=== PATIENT | female | born 1940 | race Caucasian/White ===

== ENCOUNTER 2019-10-05 20:10 | Inpatient (IN) ==
--- NOTE | 2019-10-05 20:56 | XRay Report ---
INDICATION: shortness of breath, chest pain TECHNIQUE: AP portable semiupright chest x-ray COMPARISON: None FINDINGS: Lungs:Right lung is negative. There is left lung infiltrate with left basilar consolidation. There is left lung volume loss with retraction of the heart and mediastinum. Appearance is consistent with left lung pneumonia. Follow-up PA and lateral chest x-ray is recommended. Heart, vascular:No significant cardiomegaly. Pulmonary vascularity is normal. No pulmonary edema or pulmonary congestion Mediastinum, frank:No mediastinal widening. No hilar mass Pleura:Left pleural effusion is possible although not well demonstrated on this AP portable chest x-ray Skeletal:Negative. IMPRESSION: 1. Left lung infiltrates consistent with pneumonia. Left lower lobe volume loss 2. Follow-up PA and lateral chest x-ray recommended. Interpreted and Authenticated by: Gregory Sherwood 10/05/19
[2019-10-05] MEDS ORDERED: 0.9 % SODIUM CHLORIDE 1,000 ML IV ONE (21:00)
[2019-10-05 21:05] LABS: Basophils # (Auto) 0.03 K/mcL (0.00-0.30); Basophils % (Auto) 0.2 % (0.0-2.0); Eosinophils # (Auto) 0.02 K/mcL (0.00-0.70); Eosinophils % (Auto) 0.2 % (0.0-7.0); Granulocytes % (Auto) 75.9 % (38.0-78.0); Hematocrit 38.5 % (34.1-44.9); Hemoglobin 13.3 g/dL (11.2-15.7); Lymphocytes # (Auto) 1.47 K/mcL (1.50-4.80); Mean Cell Volume 81.2 fL (80.0-100.0); Mean Corpuscular HGB Conc 34.5 g/dL (31.0-36.0); Mean Platelet Volume 9.9 fL (7.4-10.4); Monocytes # (Auto) 1.43 K/mcL (0.10-0.90); Monocytes % (Auto) 11.7 % (1.0-12.0); Platelet Count 307 K/mcL (140-440); RBC 4.74 M/mcL (3.59-5.38); Red Cell Distribution Width 12.9 % (11.5-14.5); WBC 12.3 K/mcL (4.50-11.00)
[2019-10-05 21:32] LABS: ALT/SGPT 9 U/l (0-40); AST/SGOT 19 U/l (0-37); Albumin 4.3 gm/dL (3.2-5.2); Albumin/Globulin Ratio 1.5 (1.0-2.3); Alkaline Phosphatase 86 U/L (39-117); Bilirubin,Total 1.4 mg/dL (0.0-1.0); Blood Urea Nitrogen 8 mg/dl (8-23); Calcium 9.6 mg/dl (8.6-10.4); Carbon Dioxide 26 mmol/L (22-30); Globulin 2.9 gm/dL (2.2-3.7); Glomerular Filtration Rate 87; Glucose 126 mg/dL (70-105)
[2019-10-05 21:33] LABS: Chloride 82 mmol/L (96-108)
--- NOTE | 2019-10-05 22:38 | Internal Med History&Physical ---
HPI History of Present Illness Patient information: Note initiated : 10/05/19 at 10:38 pm Service Date, if different from initiated Date: [] Patient: Trinity Baron a 79 y/o F admitted on for shortness of breath. Chief Complaint: [] History of present illness: Ms. Baron is a 79 year old F with a history of hypertension/COPD who lives alone and is fairly independent at baseline. She presents to the ER along with her daughter Cinthya after she has been feeling weak all day. This morning she slid on the floor and remained down for 4 hours until she could muster enough strength to get up back to bed and called her daughter. She denies losing consciousness or seizure-like episode or incontinence. She denies associated fever, shaking chills, joint pain, headache, photophobia. She denies sick contacts. She does complain of lower back pain but denies hitting her head or any body part. Initial work-up in the ER was consistent with left lower lobe pneumonia. Hospital service was consulted after patient was started on antibiotics. Add itionally white count 12.3 and sodium 122. At the time evaluation patient is accompanied with her daughter. She was able to answer most of the questions. She denies active distress. She has associ ated loss of appetite and has not eaten anything all day. She denies diarrhea, dysuria, changes in medications or missing her usual dose of medications. 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) Heart murmur (Chronic) No echocardiogram done Hypertension, essential (Chronic) Osteopenia (Chronic) Surgical History History of left cataract surgery (Inactive) Social History smoking status: Current every day smoker MEDS/ALLERGIES Home Medications and Allergies Home Medications Medication Instructions Recorded Confirmed Type losartan 50 mg PO QDAY 10/05/19 10/05/19 History mometasone-formoterol [Dulera] 1 puff INHALATION QDAY 10/05/19 10/05/19 History propranolol 40 mg PO QDAY 10/05/19 10/05/19 History Allergies Allergy/AdvReac Type Severity Reaction Status Date / Time lidocaine [From Xylocaine] AdvReac Mild SHAKES Verified 10/06/19 07:10 EXAM Constitutional Vitals: Temp Pulse Resp BP Pulse Ox 98.3 F 79 20 125/52 95 10/05/19 20:10 10/05/19 22:01 10/05/19 22:01 10/05/19 22:01 10/05/19 22:01 Alert and oriented Head normocephalic Oral cavity dry No ear nose discharge Neck lymphadenopathy S1-S2 regular rhythm Nonlabored breathing Diminished breath sounds bases Abdomen soft nontender nondistended Lower extremity no sinus clubbing no joint swelling Skin no suspicious lesion Psych alert cooperative Neuro nonfocal DATA Data Completed and Pending Labs on day of discharge: Labs from last 24 hours 10/05/19 10/05/19 10/05/19 20:20 20:20 20:20 WBC RBC Hgb Hct MCV MCH MCHC RDW Plt Count MPV Gran % Lymph % (Auto) [place] % (Auto) Eos % (Auto) Baso % (Auto) Gran # Lymph # (Auto) [place] # (Auto) Eos # (Auto) Baso # (Auto) Sodium 122 L Potassium 3.5 Chloride 82 L Carbon Dioxide 26 Anion Gap 14.0 BUN 8 Creatinine 0.6 GFR Calculation 87 Glucose 126 H Calcium 9.6 Total Bilirubin 1.4 H AST 19 ALT 9 Alkaline Phosphatase 86 Total Creatine Kinase 175 H Troponin T < 0.01 Total Protein 7.2 Albumin 4.3 Globulin 2.9 Albumin/Globulin Ratio 1.5 10/05/19 20:20 WBC 12.3 H RBC 4.74 Hgb 13.3 Hct 38.5 MCV 81.2 MCH 28.1 MCHC 34.5 RDW 12.9 Plt Count 307 MPV 9.9 Gran % 75.9 Lymph % (Auto) 12.0 L [place] % (Auto) 11.7 Eos % (Auto) 0.2 Baso % (Auto) 0.2 Gran # 9.30 H Lymph # (Auto) 1.47 L [place] # (Auto) 1.43 H Eos # (Auto) 0.02 Baso # (Auto) 0.03 Sodium Potassium Chloride Carbon Dioxide Anion Gap BUN Creatinine GFR Calculation Glucose Calcium Total Bilirubin AST ALT Alkaline Phosphatase Total Creatine Kinase Troponin T Total Protein Albumin Globulin Albumin/Globulin Ratio A/P Time Spent With Patient Time: * Left lower lobe pneumonia initiate empiric antibiotic coverage. Supplemental oxygen/bronchodilators * Hyponatremia check urine serum osmolarity to rule out SIADH. Chest imaging to rule out malignant process. Free water restriction. * History of hypertension continue home medication including propranolol/losartan * History of COPD continue Dulera * Tobacco dependence-nicotine patch * Prophylax Heparin Plan * Inpatient admission, anticipate minimum of 2 midnight hospitalization * Serial sodium * Urine and serum osmolarity * Antibiotic coverage * Prior medical condition management as above * PT OT nutrition support Time spent in excess of 70 minutes
[2019-10-05] MEDS ORDERED: HYDROmorphone 0.5 MG/0.5 ML SYRINGE IV PRN (22:44)
[2019-10-05] MEDS ORDERED: NALOXONE HCL 0.4 MG/ML VIAL IV PRN (22:44)
[2019-10-05] MEDS ORDERED: ONDANSETRON 4 MG/2 ML VIAL IV PRN (22:44)
[2019-10-05] MEDS ORDERED: cefTRIAXone 1 GM VIAL IV ONE (22:49)
[2019-10-05] MEDS ORDERED: AZITHROMYCIN 500 MG in DEXTROSE 5% IN WATER 250 ML IV ONE (22:50)
--- NOTE | 2019-10-05 23:02 | Emergency Department Note ---
HPI General Chief complaint: Shortness of Breath/Dyspnea Stated complaint: shortness of breath Time Seen by Provider: 10/05/19 20:44 Source: patient Mode of arrival: ambulatory Limitations: no limitations History of Present Illness HPI Narrative: Narrative: Experiencing increasing shortness of breath worsening with exertion or laying flat and begin early a.m. around 4 to have left-sided chest pain radiating through to her shoulder blades and felt quite restless. She is been reducing her cigarette smoking down from 3/day down to 2/day down per 1/day and none yesterday. She usually thinks that some chest pains are related to reflux or heartburn or gas in her stomach. She has not eaten or drank very well today. She was unstable on her feet and weak and fell to the floor without injury but laid there for about 4 hours because she was weak. She was eventually able to get to the bedroom and to bed and then a bathroom a few times and called her daughter to help get her here. Her pain now is in the mid back and is rated as rather severe but similar to some that she has had in the past. She does have h er gallbladder. She has been using an [id number] acid emily or indigestion medication because the prescription similar was too expensive. Related Data Home Medications Medication Instructions Recorded Confirmed losartan 50 mg PO QDAY 10/05/19 10/05/19 mometasone-formoterol [Dulera] 1 puff INHALATION QDAY 10/05/19 10/05/19 propranolol 40 mg PO QDAY 10/05/19 10/05/19 Allergies Allergy/AdvReac Type Severity Reaction Status Date / Time From XYLOCAINE Allergy Unknown SHAKES Uncoded 09/02/14 19:54 Review of Systems ROS ROS Narrative: Narrative: Denies fevers, chills, sweats No sore throat. Has some chronic runny nose No palpitations Has her usual cough with some usual small amount of phlegm. She takes Dulera daily and no other inhaler. Has occasional wheeze. No abdominal pain nausea vomiting or diarrhea No dysuria Back pain as above. PFSH Narrative Patient History Narrative: Narrative: Denies diabetes, hypothyroidism, renal disease, chronic anticoagulation, myocardial infarction, CVA, TIA, osteoporosis but does have osteopenia. 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) Heart murmur (Chronic) No echocardiogram done Hypertension, essential (Chronic) Osteopenia (Chronic) Surgical History (Updated 10/05/19 @ 22:58 by Kem Grove DO) History of left cataract surgery (Inactive) Social History Smoking Status: Current every day smoker Exam Narrative Narrative: Narrative: General Limitations: no limitations General appearance: alert, in no apparent distress and nontoxic Head Head: atraumatic and normocephalic Eye Eye: Present normal appearance, PERRL and EOMI ENT ENT: Present normal oropharynx and mucous membranes moist Neck Neck: Present trachea midline; Absent lymphadenopathy and thyromegaly Chest Chest: Present symmetric chest wall rise Respiratory Respiratory: Present decreased breath sounds and other (Occasional splinting with taking a deeper breath.); Absent respiratory distress, rales/crackles, wheezes, stridor, accessory muscle use and prolonged expiratory phase Cardiovascular Cardiovascular: Present regular rate, normal rhythm and systolic murmur (Small crickety sound of her S1 in the Left mid sternal border and slight or squeak sound in the aortic post.); Absent diastolic murmur Adbominal Abdominal: Present soft; Absent distention, tenderness, guarding, rebound, rigidity, organomegaly and mass Extremities Extremities: Present normal capillary refill; Absent pedal edema, pretibial edema, calf tenderness and cyanosis Back Back: Absent CVA tenderness (R), CVA tenderness (L) and spinous process tendern ess (Subjectively describes some tenderness at the level of about T9.) Neurological Neurological: Present alert and oriented X3 Psychiatric Psychiatric: Present normal affect, polite and pleasant; Absent depressed, agitated, anxious and poor eye contact Skin Skin: Present warm and dry; Absent cyanosis and pallor Course Vital Signs Vital signs: Vital Signs Temperature 98.3 F 10/05/19 20:10 Pulse Rate 87 10/05/19 20:10 Respiratory Rate 18 10/05/19 20:10 Blood Pressure 174/80 10/05/19 20:10 Pulse Oximetry (%) 96 10/05/19 20:10 Temperature 98.3 F 10/05/19 20:10 Pulse Rate 75 10/05/19 22:31 Respiratory Rate 19 10/05/19 22:31 Blood Pressure 110/48 10/05/19 22:31 Pulse Oximetry (%) 97 10/05/19 22:31 MDM MDM Narrative Medical decision making narrative: Narrative: Shortness of breath, weakness, collapse. Will do labs and chest x-ray and EKG. Will add CPK because of her being on the floor for multiple hours (4). Labs were quite unremarkable except for white count of 12.3 and sodium of 122 and chloride of 82. Bili is 1.4. Troponin less than 0.01. BUN 8 and creatinine 0.6. 10:34 PM - x-ray demonstrates left lower lobe pneumonia. I will discuss with hospitalist. 11:40 PM - I spoke with Dr. Richards, hospitalist who agrees with admit. He has for a CT scan of the chest tomorrow with contrast, urine osmolality, Rocephin and Zithromax and IV fluids, normal saline at 50 mL's per hour. Lab Data Result diagrams: 10/05/19 20:20 10/05/19 20:20 Labs: Lab Results 10/05/19 10/05/19 10/05/19 Range/Units 20:20 20:20 20:20 WBC 12.3 H (4.50-11.00) K/mcL RBC 4.74 (3.59-5.38) M/mcL Hgb 13.3 (11.2-15.7) g/dL Hct 38.5 (34.1-44.9) % MCV 81.2 (80.0-100.0) fL MCH 28.1 (26.0-34.0) pg MCHC 34.5 (31.0-36.0) g/dL RDW 12.9 (11.5-14.5) % Plt Count 307 (140-440) K/mcL MPV 9.9 (7.4-10.4) fL Gran % 75.9 (38.0-78.0) % Lymph % (Auto) 12.0 L (15.5-49.0) % [place] % (Auto) 11.7 (1.0-12.0) % Eos % (Auto) 0.2 (0.0-7.0) % Baso % (Auto) 0.2 (0.0-2.0) % Gran # 9.30 H (1.80-8.00) K/mcL Lymph # (Auto) 1.47 L (1.50-4.80) K/mcL [place] # (Auto) 1.43 H (0.10-0.90) K/mcL Eos # (Auto) 0.02 (0.00-0.70) K/mcL Baso # (Auto) 0.03 (0.00-0.30) K/mcL Sodium 122 L (133-145) mmol/L Potassium 3.5 (3.3-5.1) mmol/L Chloride 82 L (96-108) mmol/L Carbon Dioxide 26 (22-30) mmol/L Anion Gap 14.0 (8-16) BUN 8 (8-23) mg/dl Creatinine 0.6 (0.6-1.1) mg/dl GFR Calculation 87 Glucose 126 H (70-105) mg/dL Calcium 9.6 (8.6-10.4) mg/dl Total Bilirubin 1.4 H (0.0-1.0) mg/dL AST 19 (0-37) U/l ALT 9 (0-40) U/l Alkaline Phosphatase 86 (39-117) U/L Total Creatine Kinase (24-170) IU/L Troponin T < 0.01 (0-0.03) ng/ml Total Protein 7.2 (5.9-8.4) gm/dL Albumin 4.3 (3.2-5.2) gm/dL Globulin 2.9 (2.2-3.7) gm/dL Albumin/Globulin Ratio 1.5 (1.0-2.3) 10/05/19 Range/Units 20:20 WBC (4.50-11.00) K/mcL RBC (3.59-5.38) M/mcL Hgb (11.2-15.7) g/dL Hct (34.1-44.9) % MCV (80.0-100.0) fL MCH (26.0-34.0) pg MCHC (31.0-36.0) g/dL RDW (11.5-14.5) % Plt Count (140-440) K/mcL MPV (7.4-10.4) fL Gran % (38.0-78.0) % Lymph % (Auto) (15.5-49.0) % [place] % (Auto) (1.0-12.0) % Eos % (Auto) (0.0-7.0) % Baso % (Auto) (0.0-2.0) % Gran # (1.80-8.00) K/mcL Lymph # (Auto) (1.50-4.80) K/mcL [place] # (Auto) (0.10-0.90) K/mcL Eos # (Auto) (0.00-0.70) K/mcL Baso # (Auto) (0.00-0.30) K/mcL Sodium (133-145) mmol/L Potassium (3.3-5.1) mmol/L Chloride (96-108) mmol/L Carbon Dioxide (22-30) mmol/L Anion Gap (8-16) BUN (8-23) mg/dl Creatinine (0.6-1.1) mg/dl GFR Calculation Glucose (70-105) mg/dL Calcium (8.6-10.4) mg/dl Total Bilirubin (0.0-1.0) mg/dL AST (0-37) U/l ALT (0-40) U/l Alkaline Phosphatase (39-117) U/L Total Creatine Kinase 175 H (24-170) IU/L Troponin T (0-0.03) ng/ml Total Protein (5.9-8.4) gm/dL Albumin (3.2-5.2) gm/dL Globulin (2.2-3.7) gm/dL Albumin/Globulin Ratio (1.0-2.3) Discharge Plan Patient/Caregiver Discharge Instructions Pt seen by APPOINTMENT MANAGER/PA only: No Clinical Impression: Acute hyponatremia, Abnormal ECG Community acquired pneumonia Qualifiers: Laterality: left Lung location: lower lobe of lung Qualified Code(s): J18.9 - Pneumonia, unspecified organism Patient Disposition: Xfer As Inpt ([facility]) Follow up with: Kevin,Rogelio, BARREL FILLER [Primary Care Provider] - Prescriptions: No Action losartan 50 mg Tablet 50 mg PO QDAY RF: 0 propranolol 40 mg Tablet 40 mg PO QDAY RF: 0 Dulera 100-5 mcg/actuation HFA aerosol inhaler 1 puff INHALATION QDAY RF: 0
[2019-10-06] MEDS: 0.9 % SODIUM CHLORIDE 1,000 ML IV SCH ×2 (00:05→20:36)
--- NOTE | 2019-10-06 05:44 | XRay Report ---
INDICATION: pain about T9, splinting TECHNIQUE: AP, lateral, swimmer's views of the thoracic spine COMPARISON: AP chest x-ray dated 10/05/2019 FINDINGS: Examination is limited with somewhat suboptimal evaluation of the thoracic spine. 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 There is slight wedging of the T10 vertebral body. There is mild L1 superior endplate compression. This may be chronic. Other thoracic vertebral body heights are within normal limits. Pedicles appear intact. No detectable destructive lesions. Chest x-ray demonstrate density in left retrocardiac region consistent with left lower lobe consolidation. This is not well-visualized on present study. It is density projected over the lower thoracic spine but I believe this is secondary to elevated left hemidiaphragm. Further evaluation of the thoracic spine with MRI scan or CT scan may be of benefit. Follow-up PA and lateral chest x-ray may also be of benefit. IMPRESSION: 1. No definite acute compression fracture. 2. Mildly elevated left hemidiaphragm. 3. CT scan or MRI scan may be helpful for further evaluation of the thoracic spine. Follow-up PA and lateral chest x-ray recommended to better evaluate the lungs Interpreted and Authenticated by: Gregory Sherwood 10/06/19
[2019-10-06] MEDS ORDERED: IOPAMIDOL 100 ML BOTTLE IV ONE (07:22)
--- NOTE | 2019-10-06 07:47 | Cat Scan Report ---
INDICATION: LLL pneumonia, retraction/suction; thoracic pain COMPARISON: AP chest x-ray dated 10/05/2019. Thoracic spine dated 10/05/2019 TECHNIQUE: Axial contrast enhanced images through the chest. Sagittally and coronally reformatted images. MIP reformatted images. 75ml Isovue 370 injected intravenously. FINDINGS: There is a large mass in the inferior mediastinum and left hilum. This mass causes effacement of the left pulmonary artery and proximal left upper lobe and lower lobe pulmonary arteries. There is also marked effacement and probable occlusion of the left lower lobe bronchus. Appearance is consistent with malignancy. Small cell lung cancer should be considered. This mass is contiguous with the left atrium and superior left pulmonary vein. Superior left pulmonary vein is effaced. Lungs:Right lung is negative. No focal pulmonary parenchymal infiltrate or mass. There is probable mild central lobular emphysema. There is left lower lobe collapse. This is secondary to effacement of the left lower lobe bronchus from the large mediastinal and left hilar mass. Left upper lobe is negative. No focal mass. Mediastinum, vascular:As described above there is a large inferior mediastinal and left hilar mass. This is difficult to accurately measure. This measures approximately 7 cm in mediolateral dimension, 5 cm in AP dimension, and 13 cm in craniocaudal dimension. This mass is consistent with malignancy and small cell cancer should be suspected. Heart:No cardiomegaly. No pericardial effusion. No significant coronary artery calcification Pleura:There is a small left pleural effusion. No right pleural effusion Axilla, supraclavicular regions, chest wall:No pathologic axillary or supraclavicular adenopathy. 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 Multilevel degenerative disc disease in the thoracic spine. No lytic lesions. There is mild sclerosis within the T9 vertebral body. This is nonspecific. Sternum is negative. No rib lesions. Upper Abdomen:Negative IMPRESSION: 1. Large inferior mediastinal and left hilar mass. Appearance is consistent with neoplasm and small cell lung cancer is most likely 2. Effacement of the left pulmonary artery and occlusion of the left lower lobe bronchus. Significant left lower lobe volume loss 3. Small left pleural effusion 4. Mild centrilobular emphysema The exam was performed using radiation dose optimization techniques including, but not limited to, automated exposure control, adjustment of the mA and/or kV according to patient size and use of iterative reconstruction technique. Interpreted and Authenticated by: Gregory Sherwood 10/06/19
[2019-10-06] MEDS ORDERED: MOMETASONE FORMOTEROL INHALATION SCH (09:00)
[2019-10-06] MEDS ORDERED: ONDANSETRON 4 MG/2 ML VIAL IV PRN (09:01)
[2019-10-06] MEDS ORDERED: ACETAMINOPHEN 325 MG TABLET PO PRN (09:01)
[2019-10-06] MEDS ORDERED: MELATONIN 3 MG TABLET PO PRN (09:01)
[2019-10-06] MEDS ORDERED: BISACODYL 10 MG SUPP.RECT PR PRN (09:01)
[2019-10-06] MEDS ORDERED: ONDANSETRON 4 MG ODT TABLET SL PRN (09:01)
[2019-10-06] MEDS ORDERED: POLYETHYLENE GLYCOL 3350 17 GM PACKET PO PRN (09:01)
[2019-10-06 09:49] LABS: Hematocrit 36.9 % (34.1-44.9); Hemoglobin 12.5 g/dL (11.2-15.7); Mean Cell Volume 83.1 fL (80.0-100.0); Mean Corpuscular HGB Conc 33.9 g/dL (31.0-36.0); Platelet Count 277 K/mcL (140-440); RBC 4.44 M/mcL (3.59-5.38); Red Cell Distribution Width 13.1 % (11.5-14.5); WBC 7.9 K/mcL (4.50-11.00)
[2019-10-06 10:10] LABS: ALT/SGPT 10 U/l (0-40); AST/SGOT 19 U/l (0-37); Albumin 3.8 gm/dL (3.2-5.2); Albumin/Globulin Ratio 1.4 (1.0-2.3); Alkaline Phosphatase 75 U/L (39-117); Bilirubin,Direct 0.3 mg/dL (0.0-0.3); Calcium 8.7 mg/dl (8.6-10.4); Carbon Dioxide 26 mmol/L (22-30); Globulin 2.7 gm/dL (2.2-3.7); Glomerular Filtration Rate 87; Glucose 138 mg/dL (70-105); Lactate Dehydrogenase 211 U/L (94-250); Phosphorous 3.7 mg/dL (2.7-4.5); Triglycerides 67 mg/dl (<150); Uric Acid 2.5 mg/dL (2.5-8.0)
[2019-10-06 10:11] LABS: Blood Urea Nitrogen 6 mg/dl (8-23); Chloride 86 mmol/L (96-108)
[2019-10-06] MEDS: LOSARTAN 50 MG TABLET PO SCH (10:13)
[2019-10-06] MEDS: PROPRANOLOL 40 MG TABLET PO SCH (10:14)
[2019-10-06] MEDS: SODIUM CHLORIDE 1 GM TABLET PO SCH ×3 (10:14→20:36)
[2019-10-06 10:21] LABS: Lymphocytes % 11 % (15-49); Monocytes % (Manual) 10 % (1-12); Platelet Estimate NORMAL (NORMAL); RBC Morphology NORMAL (NORMAL); Segmented Neutrophils % 79 % (38-78)
--- NOTE | 2019-10-06 13:53 | Internal Med Progress Note ---
SUBJECTIVE Subjective Patient information: Note initiated : 10/06/19 at 1:47 pm Service Date, if different from initiated Date: [] Patient: Trinity Baron a 79 y/o F admitted on 10/05/19 for shortness of breath. Chief Complaint: [] Interval history: History of present illness: Ms. Baron is a 79 year old F with a history of hypertension/COPD who lives alone and is fairly independent at baseline. She presents to the ER along with her daughter Cinthya after she has been feeling weak all day. This morning she slid on the floor and remained down for 4 hours until she could muster enough strength to get up back to bed and called her daughter. She denies losing consciousness or seizure-like episode or incontinence. She denies associated fever, shaking chills, joint pain, headache, photophobia. She denies sick contacts. She does complain of lower back pain but denies hitting her head or any body part. Initial work-up in the ER was consistent with left lower lobe pneumonia. Hospital service was consulted after patient was started on antibiotics. Additionally white count 12.3 and sodium 122. At the time evaluation patient is accompanied with her daughter. She was able to answer most of the questions. She denies active distress. She has associated loss of appetite and has not eaten anything all day. She denies diarrhea, dysuria, changes in medications or missing her usual dose of medications. 10/05-patient doing a lot better. No overnight events. No concerns per staff. Sodium improved 125. Urine osmolarity over 500 suggestive of SIADH. Continue free water restriction/sodium tablets. On antibiotic coverage for pneumonia. Continue PT OT/dietary interventions. Anticipate discharge once sodium over 130. Constitutional Vitals: Vital Signs Temp Pulse Resp BP Pulse Ox 98 F 74 18 155/81 95 10/06/19 08:00 10/06/19 12:00 10/06/19 12:00 10/06/19 12:00 10/06/19 12:00 Period Temp Pulse Resp BP Sys/[place] Pulse Ox Last 24 Hr 98 F-98.7 F 74-87 14-27 110-174/48-81 95-97 Intake and Output 10/05/19 10/06/19 10/06/19 21:59 05:59 13:59 Intake Total 1300 360 Output Total 460 150 Balance 840 210 Weight 73.482 kg 74.843 kg 74.843 kg Patient Weight 10/07/19 05:59 Weight 74.843 kg Alert oriented Nonlabored breathing No anxiety Nondistended abdomen Intake & Output: Intake & Output 10/05/19 10/06/19 10/06/19 21:59 05:59 13:59 Intake Total 1300 360 Output Total 460 150 Balance 840 210 Weight 73.482 kg 74.843 kg 74.843 kg Intake: IV 1250 Sodium Chloride 0.9% 1,000 ml @ 1000 Wide Open IV BOLUS ONE Rx#: [id number] Zithromax 500 mg In Dextrose 5% 250 in Water 250 ml @ 250 mls/hr IV ONCE ONE Rx#:[id number] Oral 50 360 Output: Void Amount 460 150 Other: Meal Breakfast Percent of Meal Consumed 100% Feeding Ability Assist with Tray Set Up Urine Appearance Clear Clear Urine Color Bright Yellow Dark Yellow Urine Odor Strong Strong # Emeses 1 OBJ DATA Labs CBC & Chem 7: 10/06/19 09:08 10/06/19 12:06 Labs: Abnormal Lab Results 10/06/19 10/06/19 10/06/19 12:06 09:08 09:08 WBC Lymph % (Auto) Gran # Lymph # (Auto) Wright # (Auto) Seg Neutrophils % 79 H Lymphocytes % 11 L Sodium 125 L 126 L Chloride 86 L BUN 6 L Glucose 138 H Osmolality Total Bilirubin Total Creatine Kinase 10/05/19 10/05/19 10/05/19 20:20 20:20 20:20 WBC Lymph % (Auto) Gran # Lymph # (Auto) Wright # (Auto) Seg Neutrophils % Lymphocytes % Sodium 122 L Chloride 82 L BUN Glucose 126 H Osmolality 254 L Total Bilirubin 1.4 H Total Creatine Kinase 175 H 10/05/19 20:20 WBC 12.3 H Lymph % (Auto) 12.0 L Gran # 9.30 H Lymph # (Auto) 1.47 L Wright # (Auto) 1.43 H Seg Neutrophils % Lymphocytes % Sodium Chloride BUN Glucose Osmolality Total Bilirubin Total Creatine Kinase Meds: Medications Acetaminophen (Tylenol) 650 mg PO Q4-6HP PRN; Protocol PRN Reason: Per Pain Protocol/Fever > 101 Bisacodyl (Dulcolax) 10 mg HI Q2-3DAYS PRN PRN Reason: Constipation Docusate Sodium (Colace) 100 mg PO BID [facility] Heparin Sodium (Porcine) (Heparin) 5,000 unit SQ Q12 [facility] Hydromorphone HCl (Dilaudid) 0.5 mg IV Q2HP PRN; Protocol PRN Reason: back or chest pain Sodium Chloride (Sodium Chloride 0.9%) 1,000 mls @ 50 mls/hr IV .Q20H [facility] Last Admin: 10/06/19 00:05 Dose: 50 mls/hr Documented by: Iron Carb/Multivit/Sebastian/Folic Acid (Multivitamin W/Minerals) 1 tab PO DAILY [facility] Losartan Potassium (Cozaar) 50 mg PO QDAY [facility] Last Admin: 10/06/19 10:13 Dose: 50 mg Documented by: Melatonin (Melatonin 3mg Tablet) 3 mg PO HSP PRN PRN Reason: Insomnia Naloxone HCl (Narcan) 0.1 mg IV Q2MIN PRN PRN Reason: Opiate Reversal Non-Formulary Medication (Mometasone-Formoterol [Dulera]) 1 puff INHALATION QDAY [facility] Last Admin: 10/06/19 11:26 Dose: Not Given Documented by: Ondansetron HCl (Zofran) 4 mg IV Q4HP PRN PRN Reason: Nausea And Vomiting Ondansetron HCl (Zofran Odt) 4 mg SL Q4-6HP PRN; Protocol PRN Reason: Nausea And Vomiting Ondansetron HCl (Zofran) 4 mg IV Q4-6HP PRN; Protocol PRN Reason: Nausea And Vomiting Polyethylene Glycol (Miralax) 17 gm PO DAILYP PRN PRN Reason: Constipation Propranolol HCl (Inderal) 40 mg PO QDAY [facility] Last Admin: 10/06/19 10:14 Dose: 40 mg Documented by: Senna/Docusate Sodium (Senna Plus Tablet) 1 tab PO HS [facility] Sodium Chloride (Sodium Chloride) 2 gm PO TID [facility] Last Admin: 10/06/19 10:14 Dose: 2 gm Documented by: A/P Time Spent With Patient Time: * Left lower lobe pneumonia initiate empiric antibiotic coverage. Supplemental oxygen/bronchodilators * Hyponatremia check urine serum osmolarity to rule out SIADH. Chest imaging to rule out malignant process. Free water restriction. * History of hypertension continue home medication including propranolol/losartan * History of COPD stable on Dulera * Tobacco dependence-offered nicotine patch * Prophylax Heparin Plan * Serial sodium * Fever restriction/sodium tablet * continue antibiotic coverage * Continue pre-existing medical condition management as above * PT OT nutrition support * Discharge planning QUALITY VTE Deep Vein Thrombosis/Pulmonary Embolism Present on Admission: No
[2019-10-06] MEDS: cefTRIAXone 2 GM in DEXTROSE 5% IN WATER 50 ML IV SCH (14:46)
[2019-10-06] MEDS: DOCUSATE SODIUM 100 MG CAPSULE PO SCH (20:36)
[2019-10-06] MEDS: HEPARIN 5,000 UNIT/ML VIAL SQ SCH (20:36)
[2019-10-06] MEDS ORDERED: SENNOSIDES/DOCUSATE SODIUM 1 TAB TABLET PO SCH (21:00)
[2019-10-07 05:24] LABS: Hematocrit 33.1 % (34.1-44.9); Hemoglobin 11.1 g/dL (11.2-15.7); Mean Cell Volume 85.3 fL (80.0-100.0); Mean Corpuscular HGB Conc 33.5 g/dL (31.0-36.0); Mean Platelet Volume 10.2 fL (7.4-10.4); Platelet Count 249 K/mcL (140-440); RBC 3.88 M/mcL (3.59-5.38); Red Cell Distribution Width 13.2 % (11.5-14.5); WBC 5.5 K/mcL (4.50-11.00)
[2019-10-07 05:33] LABS: ALT/SGPT 19 U/l (0-40); AST/SGOT 21 U/l (0-37); Albumin/Globulin Ratio 1.3 (1.0-2.3); Alkaline Phosphatase 65 U/L (39-117); Bilirubin,Total 0.4 mg/dL (0.0-1.0); Blood Urea Nitrogen 7 mg/dl (8-23); Calcium 8.2 mg/dl (8.6-10.4); Carbon Dioxide 22 mmol/L (22-30); Globulin 2.3 gm/dL (2.2-3.7); Glomerular Filtration Rate 93; Glucose 94 mg/dL (70-105); Lactate Dehydrogenase 193 U/L (94-250); Phosphorous 3.1 mg/dL (2.7-4.5); Triglycerides 70 mg/dl (<150); Uric Acid 2.2 mg/dL (2.5-8.0)
[2019-10-07 05:35] LABS: Bilirubin,Direct < 0.2 mg/dL (0.0-0.3); Chloride 94 mmol/L (96-108)
[2019-10-07] MEDS: SODIUM CHLORIDE 1 GM TABLET PO SCH (07:48)
[2019-10-07] MEDS: DOCUSATE SODIUM 100 MG CAPSULE PO SCH (07:48)
[2019-10-07] MEDS: LOSARTAN 50 MG TABLET PO SCH (07:48)
[2019-10-07] MEDS: PROPRANOLOL 40 MG TABLET PO SCH (07:48)
[2019-10-07] MEDS: HEPARIN 5,000 UNIT/ML VIAL SQ SCH (07:49)
[2019-10-07 08:21] LABS: Basophils % (Manual) 1 % (0-2); Eosinophils % (Manual) 2 % (0-7); Lymphocytes % 31 % (15-49); Monocytes % (Manual) 11 % (1-12); Platelet Estimate NORMAL (NORMAL); RBC Morphology NORMAL (NORMAL); Segmented Neutrophils % 55 % (38-78)
[2019-10-07] MEDS ORDERED: MOMETASONE FORMOTEROL INH SCH (09:00)
[2019-10-07] MEDS ORDERED: MULTIVIT,THER IRON,CA,FA & MIN 1 TABLET PO SCH (09:00)
[2019-10-07] MEDS ORDERED: AZITHROMYCIN 250 MG TABLET PO SCH (09:00)
[2019-10-07] MEDS: cefTRIAXone 2 GM in DEXTROSE 5% IN WATER 50 ML IV SCH (10:20)
--- NOTE | 2019-10-07 11:22 | Discharge Summary ---
Discharge Provider Provider Patient information: Note initiated : 10/07/19 at 11:16 am Service Date, if different from initiated Date: [] Patient: Trinity Baron a 79 y/o F admitted on 10/05/19 for shortness of breath. Chief Complaint: [] Date of admission: 10/05/19 23:32 Discharge date: 10/07/19 Primary care physician: EVE Garcia Consults: 10/05/19 Consult to Physician [CONS] Stat Comment: Consulting Provider: Sloan Perla Reason For Exam: Physician to Consult Discharge Meds Discharge Medications Active and Home Medications: Home Medications losartan 50 mg PO QDAY 10/05/19 [History Confirmed 10/05/19 Last Taken Unknown] mometasone-formoterol [Dulera] 1 puff INHALATION QDAY 10/05/19 [History Confirmed 10/05/19 Last Taken Unknown] propranolol 40 mg PO QDAY 10/05/19 [History Confirmed 10/05/19 Last Taken Unknown] Acid Concession Stand Attendant (omeprazole) 20 mg PO DAILY 10/06/19 [History Confirmed 10/06/19 Last Taken Unknown] COURSE Hospital Course Discharge diagnosis: Hilar lung mass, SIADH Time Spent with Patient Time attestation: Discharge diagnosis * 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 Baron is a 79 year old F with a history of hypertension/COPD who lives alone and is fairly independent at baseline. She presents to the ER along with her daughter Cinthya after she has been feeling weak all day. This morning she slid on the floor and remained down for 4 hours until she could muster enough strength to get up back to bed and called her daughter. She denies losing consciousness or seizure-like episode or incontinence. She denies associated fever, shaking chills, joint pain, headache, photophobia. She denies sick contacts. She does complain of lower back pain but denies hitting her head or any body part. Initial work-up in the ER was consistent with left lower lobe pneumonia. Hospital service was consulted after patient was started on antibiotics. Additionally white count 12.3 and sodium 122. At the time evaluation patient is accompanied with her daughter. She was able to answer most of the questions. She denies active distress. She has associated loss of appetite and has not eaten anything all day. She denies diarrhea, dysuria, changes in medications or missing her usual dose of medications. 10/05-patient doing a lot better. No overnight events. No concerns per staff. Sodium improved 125. Urine osmolarity over 500 suggestive of SIADH. Continue free water restriction/sodium tablets. On antibiotic coverage for pneumonia. Continue PT OT/dietary interventions. Anticipate discharge once sodium over 130. 10/06-CT surgery of hilar mass. Discussed with patient. Also discussed option including biopsy and pulmonology follow-up as outpatient. Patient contemplating on further approach including palliation. At this time patient is being discharged on additional 5 days of antibiotics for pneumonia. However we will set up an appointment pulmonology for evaluation of bronchoscopy biopsy. Sodium improved to 128. EXAM Constitutional Vitals: Temp Pulse Resp BP Pulse Ox 97.7 F 69 18 150/80 97 10/07/19 08:00 10/07/19 08:00 10/07/19 08:00 10/07/19 08:00 10/07/19 08:00 Discharge Data Data Completed and Pending Labs on day of discharge: Labs from last 24 hours 10/07/19 10/07/19 10/07/19 08:26 04:00 04:00 WBC 5.5 RBC 3.88 Hgb 11.1 L Hct 33.1 L MCV 85.3 MCH 28.6 MCHC 33.5 RDW 13.2 Plt Count 249 MPV 10.2 Total Counted 100 Seg Neutrophils % 55 Band Neutrophils % Not Reportable Lymphocytes % 31 Monocytes % (Manual) 11 Eosinophils % (Manual) 2 Basophils % (Manual) 1 Platelet Estimate Normal RBC Morphology Normal Sodium 130 L 128 L Potassium 3.5 Chloride 94 L Carbon Dioxide 22 Anion Gap 12.0 BUN 7 L Creatinine 0.5 L GFR Calculation 93 Glucose 94 Uric Acid 2.2 L Calcium 8.2 L Phosphorus 3.1 Magnesium 1.9 Total Bilirubin 0.4 Direct Bilirubin < 0.2 GGT 21 AST 21 ALT 19 Alkaline Phosphatase 65 Lactate Dehydrogenase 193 Total Protein 5.3 L Albumin 3.0 L Globulin 2.3 Albumin/Globulin Ratio 1.3 Triglycerides 70 10/07/19 10/06/19 10/06/19 00:15 20:08 16:10 WBC RBC Hgb Hct MCV MCH MCHC RDW Plt Count MPV Total Counted Seg Neutrophils % Band Neutrophils % Lymphocytes % Monocytes % (Manual) Eosinophils % (Manual) Basophils % (Manual) Platelet Estimate RBC Morphology Sodium 128 L 127 L 124 L Potassium Chloride Carbon Dioxide Anion Gap BUN Creatinine GFR Calculation Glucose Uric Acid Calcium Phosphorus Magnesium Total Bilirubin Direct Bilirubin GGT AST ALT Alkaline Phosphatase Lactate Dehydrogenase Total Protein Albumin Globulin Albumin/Globulin Ratio Triglycerides 10/06/19 12:06 WBC RBC Hgb Hct MCV MCH MCHC RDW Plt Count MPV Total Counted Seg Neutrophils % Band Neutrophils % Lymphocytes % Monocytes % (Manual) Eosinophils % (Manual) Basophils % (Manual) Platelet Estimate RBC Morphology Sodium 125 L Potassium Chloride Carbon Dioxide Anion Gap BUN Creatinine GFR Calculation Glucose Uric Acid Calcium Phosphorus Magnesium Total Bilirubin Direct Bilirubin GGT AST ALT Alkaline Phosphatase Lactate Dehydrogenase Total Protein Albumin Globulin Albumin/Globulin Ratio Triglycerides Discharge Plan Patient/Caregiver Discharge Instructions Activity: increase activity as tolerated Diet: Regular Diet Instructions: Cefdinir (By mouth), Hyponatremia (DC), 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 Dr. Monterroso's office will call you for an appointment date and time. Continue antibiotic for additional 5 days. Your prescription was faxed to [facility]. Increase activity as tolerated. May resume regular diet as tolerated. Continue free water restriction to 1005 cc a day Sodium chloride 2 g 3 times a day Call your physician for sustained temperature greater than 100.5, increase in weakness, current symptoms worsen, or any other questions/concern. This discharge packet is provided to you to help keep you informed about your care. We want to ensure you get everything you need when you go home. You will also be receiving a call from us in a few days to follow up with you and see how you are doing since your discharge. This gives us a chance to listen to any concerns you maybe experiencing since you were discharged or any additional needs you may have, as well as providing us feedback on your care experience. We strive to always provide excellent care and thank you for your feedback and for choosing [facility]. Prescriptions: New cefdinir 300 MG capsule 300 mg PO BID Qty: 10 RF: 0 Continued losartan 50 mg Tablet 50 mg PO QDAY RF: 0 propranolol 40 mg Tablet 40 mg PO QDAY RF: 0 Dulera 100-5 mcg/actuation HFA aerosol inhaler 1 puff INHALATION QDAY RF: 0 Acid Concession Stand Attendant (omeprazole) 20 MG capsule 20 mg PO DAILY RF: 0 Follow Up Plan Follow up with: Rogelio Brown ARNP [Primary Care Provider] - 10/12/19 10:00 am (Please arrive 15 minutes early for your appointment.) Cyrus Monterroso MD [Physician] - (The office will call you with an appointment.) Patient Disposition: Home, Self-Care Overall status at discharge: patient is progressing back to baseline Discharge Date/Time: 10/07/19 15:10 Discharge Orders: Discharge Order (Routine); Ordered 10/07/19 Ordered By: Sloan Perla Discharge Comment: wheeled out in wheel chair, daughter to take home. QUALITY VTE Deep Vein Thrombosis/Pulmonary Embolism Present on Admission: No
== END 2019-10-07 15:10 | disposition home or self-care (01) | DRG 180 ==
LOC: ED 20:10 → MEDSUR 23:32
PROVIDERS: ADMIT Internal Medicine; ATTEND Internal Medicine